=== PATIENT | male | born 1980 | race Caucasian/White ===

== ENCOUNTER 2019-07-01 06:52 | Day surgery (SDC) | payer BC ==
[~2019-07-01 06:52] MED LIST: Bupivacaine 0.5% 50 ML MDV ONE; Lidocaine 1% with EPINEPHrine 1:100,000 50 ML MDV ONE
[2019-07-01] MEDS ORDERED: ceFAZolin 2 GM in Premix Bag 1 BAG IV ONE (07:15)
[2019-07-01] MEDS ORDERED: Sodium Chloride 0.9% 1,000 ML IV SCH (07:15)
[2019-07-01] MEDS ORDERED: metroNIDAZOLE/Normal Saline 500 MG in Premix Bag 1 BAG IV ONE (07:15)
[2019-07-01] MEDS ORDERED: Neostigmine Methylsulfate 1 MG/ML 5 ML Syringe ONE (07:21)
[2019-07-01] MEDS ORDERED: Propofol 200 MG/20 ML SDV ONE (07:21)
[2019-07-01] MEDS ORDERED: Rocuronium 50 MG/5 ML Vial ONE (07:21)
[2019-07-01] MEDS ORDERED: Glycopyrrolate 0.2 MG/ML 5 ML MDV ONE (07:21)
[2019-07-01] MEDS ORDERED: Ondansetron 4 MG/2 ML SDV ONE (07:21)
[2019-07-01] MEDS ORDERED: Dexamethasone 4 MG/ML SDV ONE (07:21)
[2019-07-01] MEDS ORDERED: Succinylcholine 200 MG/10 ML MDV ONE (07:21)
[2019-07-01] MEDS ORDERED: fentaNYL 250 MCG/5 ML SDV ONE ×2 (07:23→08:20)
[2019-07-01] MEDS ORDERED: Benzocaine/Cetylpyridinium/Menthol Lozenge MUCMEM PRN (08:56)
[2019-07-01] MEDS ORDERED: Acetaminophen/HYDROcodone 325-5 MG Tab PO PRN (08:56)
[2019-07-01] MEDS ORDERED: hydrOXYzine HCl 100 MG/2 ML SDV IM PRN (08:56)
[2019-07-01] MEDS ORDERED: Zolpidem 5 MG Tab PO PRN (08:56)
[2019-07-01] MEDS ORDERED: Docusate Sodium 100 MG Cap PO PRN (08:56)
[2019-07-01] MEDS ORDERED: Acetaminophen/HYDROcodone 325-5 MG Tab PO ONE (10:51)
--- NOTE | 2019-07-01 13:10 | OR ---
DATE OF PROCEDURE: 07/01/2019 SURGEON: Calvin Parks MD PROCEDURE: Laparoscopic ventral hernia repair, incarcerated. COMPLICATIONS: None. THINNER SPRAYER: None. ANESTHESIA: General/local. RISKS: Risks, benefits, alternatives, and limitations including, but not limited to infection, bleeding, and possibility of open injury to abdominal structures were all explained to the patient, who wished to proceed. PROCEDURE IN DETAIL: The patient was placed in supine position. In the left abdomen, a Veress needle was used to enter the abdomen without abnormality. A drop test was performed without abnormality. This was followed by an Optiview trocar. After the 10 mm port was introduced, two 5 mm ports were entered under direct visualization in the midline abdomen and right lower quadrant. These were also under direct visualization and no evidence of abnormalities noted during entry. The hernia itself was noted to be incarcerated with omentum. This was reduced using gentle traction. Electrocautery and Harmonic scalpel were used to remove a small amount of abdominoperitoneal fat around this area. The hernia was measured to be approximately 3.5 cm. An 11 cm mesh was introduced. This was tacked into place in less than 1 cm increments. The air was reduced. The abdomen was inspected for venous bleeding or abnormal bleeding, and none was noted. The entry sites were inspected and no abnormalities were noted. The air was removed. The wounds were closed with 3-0 Vicryl and 4-0 Vicryl in interrupted running fashion. Dermabond was applied. The patient tolerated the procedure well. Calvin Parks MD /[id number]
--- NOTE | 2019-07-01 13:13 | OR ---
DATE OF PROCEDURE: 07/01/2019 SURGEON: Calvin Parks MD PROCEDURE: Transversus abdominis plane block, bilaterally. COMPLICATION: None. BATH MIX OPERATOR: None. RISKS: Risks, benefits, alternatives, and limitations including, but not limited to infection, bleeding, and injury to abdominal structures were explained to the patient, who wished to proceed. PROCEDURE IN DETAIL: The patient was placed in supine position. The right transversus abdominis plane was identified and addressed first. This was prepped, draped, and identified using 11 megahertz ultrasound probe. The needle was advanced under direct guidance and approximately 80% of the contents were injected in this proper plane. The left side was then performed in same manner, same fashion, same technique, using the same sequence, and using the same equipment, except for different needle and syringe. Dressings were applied. The patient tolerated the procedure well. Calvin Parks MD /[id number]
== END 2019-07-01 12:04 | disposition home or self-care (01) ==
LOC: JP.SDS 06:52
PROVIDERS: ATTEND Surgery
DX: K43.6 Other and unspecified ventral hernia with obstruction, without gangrene (principal); F17.210 Nicotine dependence, cigarettes, uncomplicated
CPT/HCPCS: 49653; 64488; A9270; C1713; C1781; J0171; J0330; J0690; J1100; J2405; J2704; J2710; J2795; J3010; J3410; J3490; J7030; J7050